=== PATIENT | male | born 1945 | race Caucasian/White ===

== ENCOUNTER 2023-02-09 10:01 | Emergency (ER) | payer OTHER, MEDICARE ==
[2023-02-09] MEDS ORDERED: PANTOPRAZOLE 40 MG/10 ML VIAL IVP ONE (10:29)
[2023-02-09] MEDS ORDERED: SODIUM CHLORIDE 0.9% 1,000 ML IV STA (10:29)
[2023-02-09 10:45] LABS: Basophils % (A) 0 %; Eosinophils # (A) 0.1 k/uL (0-0.7); Eosinophils % (A) 1 %; HCT 43.5 % (39.0-53.0); HGB 13.9 gm/dL (13.0-17.5); Lymphocytes # (A) 0.9 k/uL (1.0-4.8); Lymphocytes % (A) 8 %; MCH 31.2 pg (25.0-35.0); MCV 97.6 fL (80.0-100.0); Mean Platelet Volume 7.4; Monocytes # (A) 1.2 k/uL (0-1.0); Monocytes % (A) 10 %; Neutrophils # (A) 8.9 k/uL (1.3-7.7); Neutrophils % (A) 80 %; Platelet Count 272 k/uL (150-450); RBC 4.45 m/uL (4.30-5.90); RDW 13.5 % (11.5-15.5); WBC 11.2 k/uL (3.8-10.6)
--- NOTE | 2023-02-09 10:47 | ED ---
General Adult HPI - General Chief complaint: GI Bleed Stated complaint: Abd Pain, Vomiting Time Seen by Provider: 02/09/23 10:13 Source: EMS Mode of arrival: EMS Limitations: altered mental status - History of Present Illness Initial comments: Dictation was produced using [employer] dictation software. please excuse any grammatical, word or spelling errors. Chief Complaint: 77-year-old male presents emergency department for coffee-groun d emesis History of Present Illness: Is 77-year-old male he is a resident in a alf. He is unable to provide history present illness. Patient has a past medical history of seizure disorder, dementia and mental disability. According to nurse received report from EMS he was noted to have acute onset coffee-ground emesis that started today. EMS reports the patient had few bouts of coffee-g round emesis en route to the emergency department. Unable to obtain ROS second her to mental status PHYSICAL EXAM: General Impression: not in acute distress HEENT: Normocephalic atraumatic, extra-ocular movements intact, pupils equal and reactive to light bilaterally, mucous membranes moist. Cardiovascular: Heart regular rate and rhythm Chest: Able to complete full sentences, no retractions, no tachypnea Abdomen: abdomen soft, non-tender, non-distended, no organomegaly Musculoskeletal: Pulses present and equal in all extremities, no peripheral edema Motor: no focal deficits noted Neurological: CN II-XII grossly intact, no focal motor or sensory deficits noted Skin: Intact with no visualized rashes ED course: 77-year-old male with mental debility presents to the ER for acute onset coffee-ground emesis. Vital signs upon arrival are within acceptable limits. Nursing notes and chart review was performed Was pt. sent in by a medical professional or institution (, PA, RESAW TAILER, urgent care, hospital, or custodial...) When possible be specific @ -No Did you speak to anyone other than the patient for history (EMS, parent, family, police, friend...)? What history was obtained from this source @ -Nurse who received report from EMS Did you review nursing and triage notes (agree or disagree)? Why? @ -I reviewed and agree with nursing and triage notes Were old charts reviewed (outside hosp., previous admission, EMS record, old EKG, old radiological studies, urgent care reports/EKG's, custodial records)? Report findings @ -correction documentation was reviewed Differential Diagnosis (chest pain, altered mental status, abdominal pain women, abdominal pain men, vaginal bleeding, musculoskeletal, weakness, fever, dyspnea, syncope, headache, dizziness, GI bleed, back pain, seizure, CVA, palpatations, mental health)? @ -Differential GI Bleed: Esophageal varices, aortoenteric fistula, Deedee-Fournier, gastritis, peptic ulcer disease, diverticulosis, inflammatory bowel disease, hemorrhoids, fissure, colitis, malignancy, Meckels diverticulum, this is not meant to be an all-incl usive list. EKG interpreted by me (3pts min.). @ -See above X-rays interpreted by me (1pt min.). @ -None done CT interpreted by me (1pt min.). @ -None done U/S interpreted by me (1pt. min.). @ -None done What testing was considered but not performed or refused? (CT, X-rays, U/S, labs)? Why? @ -CT imaging of the abdomen and pelvis was considered however patient has no palpatory tenderness of the abdomen What meds were considered but not given or refused? Why? @ -octreotide was considered however bleeding is not likely secondary to variceal bleeding Did you discuss the management of the patient with other professionals (professionals i.e. , PA, RESAW TAILER, lab, RT, psych nurse, dialysis social worker, press tender long goods, teacher, correctional officer captain, case supervisor)? Give summary @ -Case discussed with the transfer line for transferred to [facility] for GI Was smoking cessation discussed for >3mins.? @ -No Was critical care preformed (if so, how long)? @ -No Were there social determinants of health that impacted care today? How? (Homelessness, low income, unemployed, alcoholism, drug addiction, transportation, low edu. Level, literacy, decrease access to med. care, fpc, rehab)? @ -No Was there de-escalation of care discussed even if they declined (Discuss DNR or withdrawal of care, Hospice)? DNR status @ -No What co-morbidities impacted this encounter? (DM, HTN, Smoking, COPD, CAD, Cancer, CVA, ARF, Chemo, Hep., AIDS, mental health diagnosis, sleep apnea, morbid obesity)? @ -Mental debility Was patient admitted / discharged? Hospital course, mention meds given and route, prescriptions, significant lab abnormalities, going to OR and other pertinent info. @ -77-year-old male presents to the emergency department for coffee ground emesis. Hemoglobin stable. Patient does have a lactic acidosis 5.0 however he is well-appearing at the bedside and with stable vital signs. Some clear with causing this lactic acidosis however patient does not appear to be critically ill. Patient not have any bouts of emesis at the bedside. No indication for blood transfer patient at this time. Patient be transferred to [facility]. Accepting physician is Dr. Urena. Patient given Protonix Undiagnosed new problem with uncertain prognosis? @ -No Drug Therapy requiring intensive monitoring for toxicity (Heparin, Nitro, Insulin, Cardizem)? @ -No Were any procedures done? @ -No Diagnosis/symptom? Acute, or Chronic, or Acute on Chronic? Uncomplicated (without systemic symptoms) or Complicated (systemic symptoms)? @ -1. Acute GI bleed suspect upper GI bleed Side effects of treatment? @ -No Exacerbation, Progression, or Severe Exacerbation? @ -No Poses a threat to life or bodily function? How? (Chest pain, [place], [place], pneumonia, PE, COPD, DKA, ARF, appy, cholecystitis, CVA, Diverticulitis, Homicidal, Suicidal, threat to staff... and all critical care pts) @ -yes - Related Data Home Medications Medication Instructions Recorded Confirmed Acetaminophen [Tylenol] 650 mg PO BID 02/09/23 02/09/23 Aspirin 325 mg PO DAILY 02/09/23 02/09/23 Cholecalciferol [Vitamin D3 (25 50 mcg PO DAILY 02/09/23 02/09/23 Mcg = 1000 Iu)] Divalproex ER [Depakote ER] 1,500 mg PO HS 02/09/23 02/09/23 Divalproex ER [Depakote ER] 500 mg PO DAILY 02/09/23 02/09/23 Docusate Sodium [Dok] 100 mg PO BID 02/09/23 02/09/23 Furosemide [Lasix] 40 mg PO DAILY 02/09/23 02/09/23 LORazepam [Ativan] 0.5 mg PO DAILY 02/09/23 02/09/23 Levothyroxine Sodium [Synthroid] 100 mcg PO DAILY@0500 02/09/23 02/09/23 Magnesium Hydroxide [Milk of 7,200 mg PO DAILY PRN 02/09/23 02/09/23 Magnesia Concentrate] Mirtazapine [Remeron] 15 mg PO HS 02/09/23 02/09/23 Nirmatrelvir/Ritonavir [Paxlovid 3 tab PO BID 02/09/23 02/09/23 2X150 mg-100 mg (Eua)] Tamsulosin [Flomax] 0.4 mg PO DIRECTED 02/09/23 02/09/23 bisacodyL [Dulcolax] 10 mg RECTAL DAILY PRN 02/09/23 02/09/23 dexAMETHasone [Decadron] 6 mg PO DAILY 02/09/23 02/09/23 Allergies Allergy/AdvReac Type Severity Reaction Status Date / Time chocolate flavor Allergy Unknown Verified 02/09/23 11:44 Review of Systems ROS Statement: Those systems with pertinent positive or pertinent negative responses have been documented in the HPI. ROS Other: All systems not noted in ROS Statement are negative. Past Medical History Past Medical History: Heart Failure, Dementia, GERD/Reflux, Hyperlipidemia, Hype rtension, Osteoarthritis (OA), Prostate Disorder, Seizure Disorder, Thyroid Disorder Additional Past Medical History / Comment(s): per ECG paperwork- conduct disorer, moderate intellectual diabilities, IBS, kidney stones History of Any Multi-Drug Resistant Organisms: MRSA Date of last positivie culture/infection: unkown- per custodial paperwork Past Surgical History: Unable to Obtain Past Psychological History: Anxiety, Depression Smoking Status: Unknown if ever smoked Past Alcohol Use History: Unable to Obtain Past Drug Use History: Unable to Obtain General Exam Limitations: altered mental status Course Vital Signs 02/09/23 02/09/23 02/09/23 10:04 10:32 11:50 Temperature 97.5 F L Pulse Rate 100 93 83 Respiratory 18 18 18 Rate Blood Pressure 99/74 110/72 113/79 O2 Sat by Pulse 97 97 96 Oximetry 02/09/23 12:10 Temperature 96.9 F L Pulse Rate 93 Respiratory 20 Rate Blood Pressure 108/80 O2 Sat by Pulse 95 Oximetry Medical Decision Making - Lab Data Result diagrams: 02/09/23 10:31 02/09/23 10:31 Lab Results 02/09/23 02/09/23 02/09/23 Range/Units 10:31 10:31 10:31 WBC 11.2 H (3.8-10.6) k/uL RBC 4.45 (4.30-5.90) m/uL Hgb 13.9 (13.0-17.5) gm/dL Hct 43.5 (39.0-53.0) % MCV 97.6 (80.0-100.0) fL MCH 31.2 (25.0-35.0) pg MCHC 32.0 (31.0-37.0) g/dL RDW 13.5 (11.5-15.5) % Plt Count 272 (150-450) k/uL MPV 7.4 Neutrophils % 80 % Lymphocytes % 8 % Monocytes % 10 % Eosinophils % 1 % Basophils % 0 % Neutrophils # 8.9 H (1.3-7.7) k/uL Lymphocytes # 0.9 L (1.0-4.8) k/uL Monocytes # 1.2 H (0-1.0) k/uL Eosinophils # 0.1 (0-0.7) k/uL Basophils # 0.0 (0-0.2) k/uL PT 12.1 H (9.0-12.0) sec INR 1.2 H (<1.2) APTT 24.2 (22.0-30.0) sec Sodium (137-145) mmol/L Potassium (3.5-5.1) mmol/L Chloride (98-107) mmol/L Carbon Dioxide (22-30) mmol/L Anion Gap mmol/L BUN (9-20) mg/dL Creatinine (0.66-1.25) mg/dL Est GFR (CKD-EPI)AfAm (>60 ml/min/1.73 sqM) Est GFR (CKD-EPI)NonAf (>60 ml/min/1.73 sqM) Glucose (74-99) mg/dL Plasma Lactic Acid Ihsan (0.7-2.0) mmol/L Calcium (8.4-10.2) mg/dL Stool Occult Blood Positive (Negative) Influenza Type A (PCR) (Not Detectd) Influenza Type B (PCR) (Not Detectd) RSV (PCR) (Not Detectd) SARS-CoV-2 (PCR) (Not Detectd) Blood Type Blood Type Confirm Blood Type Recheck Bld Type Recheck Status Antibody Screen Spec Expiration Date 02/09/23 02/09/23 02/09/23 Range/Units 10:31 10:31 10:35 WBC (3.8-10.6) k/uL RBC (4.30-5.90) m/uL Hgb (13.0-17.5) gm/dL Hct (39.0-53.0) % MCV (80.0-100.0) fL MCH (25.0-35.0) pg MCHC (31.0-37.0) g/dL RDW (11.5-15.5) % Plt Count (150-450) k/uL MPV Neutrophils % % Lymphocytes % % Monocytes % % Eosinophils % % Basophils % % Neutrophils # (1.3-7.7) k/uL Lymphocytes # (1.0-4.8) k/uL Monocytes # (0-1.0) k/uL Eosinophils # (0-0.7) k/uL Basophils # (0-0.2) k/uL PT (9.0-12.0) sec INR (<1.2) APTT (22.0-30.0) sec Sodium 139 (137-145) mmol/L Potassium 4.4 (3.5-5.1) mmol/L Chloride 99 (98-107) mmol/L Carbon Dioxide 28 (22-30) mmol/L Anion Gap 12 mmol/L BUN 40 H (9-20) mg/dL Creatinine 1.27 H (0.66-1.25) mg/dL Est GFR (CKD-EPI)AfAm 62 (>60 ml/min/1.73 sqM) Est GFR (CKD-EPI)NonAf 53 (>60 ml/min/1.73 sqM) Glucose 120 H (74-99) mg/dL Plasma Lactic Acid Ihsan (0.7-2.0) mmol/L Calcium 8.9 (8.4-10.2) mg/dL Stool Occult Blood (Negative) Influenza Type A (PCR) (Not Detectd) Influenza Type B (PCR) (Not Detectd) RSV (PCR) (Not Detectd) SARS-CoV-2 (PCR) (Not Detectd) Blood Type A Positive Blood Type Confirm A Positive Blood Type Recheck No Previous Record Bld Type Recheck Status CABO Indicated Antibody Screen NEGATIVE Spec Expiration Date 02/12/2023233002/09/23 02/09/23 Range/Units 10:43 10:47 WBC (3.8-10.6) k/uL RBC (4.30-5.90) m/uL Hgb (13.0-17.5) gm/dL Hct (39.0-53.0) % MCV (80.0-100.0) fL MCH (25.0-35.0) pg MCHC (31.0-37.0) g/dL RDW (11.5-15.5) % Plt Count (150-450) k/uL MPV Neutrophils % % Lymphocytes % % Monocytes % % Eosinophils % % Basophils % % Neutrophils # (1.3-7.7) k/uL Lymphocytes # (1.0-4.8) k/uL Monocytes # (0-1.0) k/uL Eosinophils # (0-0.7) k/uL Basophils # (0-0.2) k/uL PT (9.0-12.0) sec INR (<1.2) APTT (22.0-30.0) sec Sodium (137-145) mmol/L Potassium (3.5-5.1) mmol/L Chloride (98-107) mmol/L Carbon Dioxide (22-30) mmol/L Anion Gap mmol/L BUN (9-20) mg/dL Creatinine (0.66-1.25) mg/dL Est GFR (CKD-EPI)AfAm (>60 ml/min/1.73 sqM) Est GFR (CKD-EPI)NonAf (>60 ml/min/1.73 sqM) Glucose (74-99) mg/dL Plasma Lactic Acid Ihsan 5.0 H* (0.7-2.0) mmol/L Calcium (8.4-10.2) mg/dL Stool Occult Blood (Negative) Influenza Type A (PCR) Not Detected (Not Detectd) Influenza Type B (PCR) Not Detected (Not Detectd) RSV (PCR) Not Detected (Not Detectd) SARS-CoV-2 (PCR) Detected A (Not Detectd) Blood Type Blood Type Confirm Blood Type Recheck Bld Type Recheck Status Antibody Screen Spec Expiration Date Disposition Clinical Impression: GI bleed Disposition: OTHER INSTITUTION NOT DEFINED Condition: Fair Referrals: Joe Bingham MD [Primary Care Provider] - 1-2 days Time of Disposition: 12:10 - Out of Hospital Transfer - Req. Specs Out of Hospital Transfer - Requested Specifics: Other Emergency Center ([facility])
[2023-02-09 10:54] LABS: Calcium 8.9 mg/dL (8.4-10.2); Potassium 4.4 mmol/L (3.5-5.1)
[2023-02-09 10:57] LABS: INR 1.2 (<1.2); Partial Thromboplastin Time 24.2 sec (22.0-30.0); Prothrombin Time 12.1 sec (9.0-12.0)
[2023-02-09 13:42] VITALS: PULSE 91; TEMP 97
[2023-02-09] MEDS ORDERED: ONDANSETRON 4 MG/2 ML VIAL IVP STA (14:06)
[2023-02-09 15:21] VITALS: BP 137/90; RESP 16
== END 2023-02-09 15:21 | disposition other institution (70) ==
LOC: EC 10:01
DX: K92.2 Gastrointestinal hemorrhage, unspecified (principal); I11.0 Hypertensive heart disease with heart failure; I50.9 Heart failure, unspecified; E78.5 Hyperlipidemia, unspecified; M19.90 Unspecified osteoarthritis, unspecified site; E07.9 Disorder of thyroid, unspecified; F41.9 Anxiety disorder, unspecified; F32.A Depression, unspecified; Z91.018 Allergy to other foods; Z79.82 Long term (current) use of aspirin; Z79.890 Hormone replacement therapy; Z79.899 Other long term (current) drug therapy
CPT/HCPCS: 36415; 86900; 86901; 80048; 83605; 85025; 85610; 85730; 86850; 82272; 87636; 99285; 96374; 96361; J2405; C9113